=== PATIENT | female | born 1995 | race Caucasian/White ===

== ENCOUNTER → 2021-03-19 15:28 | Outpatient (CLI) | payer OTHER, SELFPAY ==
--- NOTE | 2021-03-19 | DI.RAD.S_ITS ---
PROCEDURE: XR LUMBAR SPINE 2-3V INDICATIONS: LOW BACK PAIN TECHNIQUE: 3 views of the lumbar spine were acquired. COMPARISON: [facility], , L-SPINE 2-3 VIEWS, 09/05/2015, 16:22. FINDINGS: Bones: 5 gdt-[id number]-[id number] vertebrae are present. Trace dextrocurvature centered at the L1 level. Facet arthrosis at L3-S1. No vertebral body compression fractures. Soft tissues: Overlying bowel gas pattern is normal. No suspicious soft tissue calcifications. IMPRESSION: Trace dextrocurvature; otherwise normal L-spine. Dictated by: Dayron BARRERA Interpreted: Oliver Callahan MD on 03/19/2021 at 15:56 Transcribed by: JEROMY on 03/19/2021 at 15:57 Approved by: Oliver Callahan M.D. on 03/19/2021 at 17:32
== END ==
PROVIDERS: Family Provider Family Medicine; PCP Family Medicine; Referring Provider Family Medicine; Visit Provider Family Medicine
DX: M54.50 Low back pain, unspecified (principal)
CPT/HCPCS: 72100

== ENCOUNTER 2024-02-27 17:07 | Emergency (ER) | payer OTHER, SELFPAY ==
[2024-02-27 17:11] VITALS: BP 140/78; PULSE 89; RESP 16; TEMP 36.6; O2SAT 98; BMI 43.7
--- NOTE | 2024-02-27 17:15 | DI.RAD.S_ITS ---
PROCEDURE: XR KNEE LT 3V INDICATIONS: left knee concerns of dislocation, hx same TECHNIQUE: 3 views of the knee were acquired. COMPARISON: , , KNEE 3V LEFT, 04/17/2015, 16:09. FINDINGS: Bones: No fractures or dislocations. Old well corticated osseous fragment adjacent to the medial aspect of the patella. No suspicious bony lesions. Soft tissues: Small joint effusion. No suspicious soft tissue calcifications. IMPRESSION: No acute fracture or dislocation. Small knee joint effusion. If pain persists with conservative management, consider repeat x-ray in 10-14 days or cross-sectional imaging. Dictated by: Manpreet Marcano M.D. on 02/27/2024 at 17:48 Approved by: Manpreet Marcano M.D. on 02/27/2024 at 17:49
--- NOTE | 2024-02-27 18:21 | ED_ITS ---
HPI - Extremity Injury (Lower) <Adriana Goddard PA-C - Last Filed: 02/27/24 19:31> General Chief Complaint: Extremity Injury, Lower Stated Complaint: dislocated knee Time Seen by Provider: 02/27/24 18:21 Source: patient Mode of arrival: Family Vehicle History of Present Illness HPI Narrative: Ms. Cárdenas is a pleasant 28-year-old female with a past medical history of left knee dislocation (suspected patellar dislocation) in 2016 who presents to the emergency department for left knee pain and concern for dislocation that occurred earlier today. Patient states her knee occasionally ?pops? out of place ever since her injury in 2016 however it has been happening more frequently. Earlier today when she was attempting to get into a car the left knee popped and gave out on her and she had immediate pain. States that normally when this happens the pain goes away after about an hour however she has persistently had pain and had some tingling in her toes immediately after the injury. Pain is exacerbated by weight-bearing. She noticed some swelling to the knee. She comes to the ER for further evaluation of possible dislocation or other injury. Denies any other injuries or fall. She has not taken any medication prior to arrival. Related Data Home Medications Medication Instructions Recorded Confirmed cholecalciferol (vitamin D3) 25 2,000 unit PO DAILY 03/30/19 10/29/19 mcg (1,000 unit) capsule l-theanine PO 03/30/19 10/29/19 Previous Rx's Medication Instructions Recorded bupropion HCl 150 mg 24 hr tablet, 150 mg PO QAM #90 tabs 09/06/19 extended release citalopram 20 mg tablet 20 mg PO DAILY #90 tabs 09/30/19 trazodone 50 mg tablet See Rx Instructions PO BEDTIME PRN 10/29/19 sleep #30 tabs Allergies Allergy/AdvReac Type Severity Reaction Status Date / Time Penicillins Allergy Severe Anaphylaxis Verified 02/27/24 17:14 Review of Systems <Adriana Goddard PA-C - Last Filed: 02/27/24 19:31> Review of Systems ROS Unobtainable: All systems reviewed & are unremarkable except as noted in HPI and below Patient History <Adriana Goddard PA-C - Last Filed: 02/27/24 19:31> Social History Smoking Status: Current every day smoker Smoking Status: Current every day smoker tobacco type: vaping Exam <Adriana Goddard PA-C - Last Filed: 02/27/24 19:31> Narrative Exam Narrative: GENERAL: 28 year old patient appears stated age. Well-developed patient, in no acute distress. HEAD: Atraumatic. Normocephalic. CARDIOVASCULAR: Regular rate and rhythm. Strong DP and PT pulse on left foot. Brisk capillary refill. RESPIRATORY: ?Nonlabored respirations. ?Speaking in clear, full sentences. EXTREMITIES: Generalized swelling of left anterior knee with tenderness to palpation of medial anterior patella. No obvious deformities. Passive flexion and extension intact, pain with active extension. Negative posterior drawer test and Nikko's test. NEURO: AOx3. ?Clear speech. ?Sensation intact to light touch on the distal left foot. SKIN: No rash or erythema of visible areas Initial Vital Signs Initial Vital Signs: Vital Signs Temperature 97.8 F 02/27/24 17:11 Pulse Rate 89 02/27/24 17:11 Respiratory Rate 16 02/27/24 17:11 Blood Pressure 140/78 02/27/24 17:11 Pulse Oximetry 98 02/27/24 17:11 Oxygen Delivery Method Room Air 02/27/24 17:11 <Wilmer Bauer DO - Last Filed: 02/27/24 22:10> Initial Vital Signs Initial Vital Signs: Vital Signs Temperature 97.8 F 02/27/24 17:11 Pulse Rate 89 02/27/24 17:11 Respiratory Rate 16 02/27/24 17:11 Blood Pressure 140/78 02/27/24 17:11 Pulse Oximetry 98 02/27/24 17:11 Oxygen Delivery Method Room Air 02/27/24 17:11 Course <Adriana Goddard PA-C - Last Filed: 02/27/24 19:31> Orders Ordered: ED Orders 02/27/24 17:15 XR knee LT 3V Stat Discontinued Medications Acetaminophen (Acetaminophen 325 Mg Tablet) 650 mg PO NOW ONE Stop: 02/27/24 18:34 Last Admin: 02/27/24 18:43 Dose: 650 mg Documented By: JULIOCESAR Ibuprofen (Ibuprofen 400 Mg Tablet) 400 mg PO NOW ONE Stop: 02/27/24 18:34 Last Admin: 02/27/24 18:43 Dose: 400 mg Documented By: JULIOCESAR Vital Signs Vital signs: Vital Signs - 8 hr 02/27/24 17:11 Temperature 97.8 F Pulse Rate 89 Respiratory Rate 16 Blood Pressure 140/78 Pulse Oximetry 98 Oxygen Delivery Method Room Air <Wilmer Bauer DO - Last Filed: 02/27/24 22:10> Orders Ordered: ED Orders 02/27/24 17:15 XR knee LT 3V Stat Discontinued Medications Acetaminophen (Acetaminophen 325 Mg Tablet) 650 mg PO NOW ONE Stop: 02/27/24 18:34 Last Admin: 02/27/24 18:43 Dose: 650 mg Documented By: JULIOCESAR Ibuprofen (Ibuprofen 400 Mg Tablet) 400 mg PO NOW ONE Stop: 02/27/24 18:34 Last Admin: 02/27/24 18:43 Dose: 400 mg Documented By: JULIOCESAR Vital Signs Vital signs: Vital Signs - 8 hr 02/27/24 17:11 Temperature 97.8 F Pulse Rate 89 Respiratory Rate 16 Blood Pressure 140/78 Pulse Oximetry 98 Oxygen Delivery Method Room Air MDM - Extremity Injury (Lower) <Adriana Goddard PA-C - Last Filed: 02/27/24 19:31> Medical Records Attestation: I reviewed the patient's medical records. Imaging Data Left Knee X-Ray: Radiologist's Impression: PROCEDURE: XR KNEE LT 3V INDICATIONS: left knee concerns of dislocation, hx same TECHNIQUE: 3 views of the knee were acquired. COMPARISON: [facility], , KNEE 3V LEFT, 04/17/2015, 16:09. FINDINGS: Bones: No fractures or dislocations. Old well corticated osseous fragment adjacent to the medial aspect of the patella. No suspicious bony lesions. Soft tissues: Small joint effusion. No suspicious soft tissue calcifications. IMPRESSION: No acute fracture or dislocation. Small knee joint effusion. If pain persists with conservative management, consider repeat x-ray in 10-14 days or cross-sectional imaging. MDM Narrative Medical decision making narrative: 28-year-old female with a past medical history of left knee dislocation (suspected patellar dislocation) in 2015 who presents to the emergency department for left knee pain and concern for dislocation that occurred earlier today. Her father contributes to the history. Differential diagnosis includes but is not limited to patellar dislocation, knee sprain, knee strain, meniscus injury, ligament injury, fracture, effusion, etc. On exam the patient is in no acute distress, nontoxic appearing, vital signs all within normal limits. She has some swelling and pain with range of motion of the left knee. Left lower extremity is neurovascularly intact with brisk cap refill, strong pulses, sensation intact to light touch. X-ray obtained revealing no acute fracture or dislocation however there is a small knee joint effusion and an old bone fragment. Concern for possible patellar dislocation that went back into place or other ligament injury. Patient was placed into a left knee immobilizer and advised to follow up with Orthopedics. She has crutches at home. Recommended rice therapy and ibuprofen/Tylenol. First doses of medications given the ER. She verbalized understanding of all information and is agreeable to the plan. She is stable for discharge home. Discharge Plan Departure Patient Disposition: Home Clinical Impression: Effusion of left knee joint Left knee sprain Qualifiers: Encounter type: initial encounter Involved ligament of knee: unspecified ligament Qualified Code(s): S83.92XA - Sprain of unspecified site of left knee, initial encounter Instructions: DI for Knee Sprain Activity Restrictions/Additional Instructions: Dear Ms. Cárdenas, Today you were evaluated for left knee pain after a possible dislocation. Your x-ray does not reveal any acute bone fracture or dislocation. There is a small joint effusion. There is an old bone fragment. I am concerned about possible ligament or soft tissue injury, therefore we have placed to into a left knee immobilizer. Please use crutches if needed. Please take Ibuprofen (Motrin/Advil) or Acetaminophen (Tylenol) for pain. These are available over the counter. You may take Ibuprofen 600 mg every 8 hours with food for pain. You may also take Acetaminophen 650 mg every 4-6 hours for pain. Do not exceed 3000 mg of Tylenol a day as this can cause liver damage. Do not drink alcohol with either of these medications. Please use RICE therapy for your pain in addition to ibuprofen/acetaminophen. Rest the painful area. Ice the area of pain/swelling for at least 15 minutes, 4x a day. Compress the area of swelling using a brace, wrap, or splint if applied. Elevate the painful or swollen extremity by supporting it above the level of the heart with pillows when sitting or laying. Please call to schedule an appointment with [facility] for further evaluation. You may follow up with Dr. Arcelia Cárdenas or any of the other physicians. You can call their office at [phone] to schedule an appointment. Please follow up with your primary care doctor within the next 2-3 days for ER follow-up. (If you do not have a PCP you can call [phone]. ?to schedule an appointment with an [facility] Primary Care Provider) IF YOU DEVELOP ANY NEW OR WORSENING SYMPTOMS, RETURN TO THE ER! Please read the attached instructions, they highlight more specific treatments and interventions for you at home. Thank you for letting me participate in your care, Adriana Goddard PA-C Prescriptions: No Action l-theanine PO Rx Instructions: unknown dose, pt takes 2 tabs daily cholecalciferol (vitamin D3) 25 mcg (1,000 unit) capsule 2,000 unit PO DAILY trazodone 50 mg tablet See Rx Instructions PO BEDTIME PRN (Reason: sleep) Qty: 30 2RF Rx Instructions: Take 1/2-1 tab at bedtime as needed for sleep. citalopram 20 mg tablet 20 mg PO DAILY Qty: 90 0RF bupropion HCl 150 mg tablet extended release 24 hr 150 mg PO QAM Qty: 90 1RF Referrals: Mohan Fajardo MD [Primary Care Provider] - Stand Alone Forms: Patient Portal/API/Survey ED Sign-out <Wilmer Bauer, - Last Filed: 02/27/24 22:10> [facility]: Dr Bauer Co-Sign Statement: I was available for consultation during this patient's emergency department visit. This chart is signed by myself for administrative purposes only. I did not have direct contact with this patient during this visit. They were seen independently by the APC.
[2024-02-27] MEDS: ACETAMINOPHEN 325 MG TABLET 650 MG PO (18:43)
[2024-02-27] MEDS: IBUPROFEN 400 MG TABLET PO (18:43)
--- NOTE | 2024-02-27 19:03 | PC.NURSE ---
Pt reports hx of old bone fragment; states pain in left knee--worse upon standing up.
== END 2024-02-27 19:04 | disposition home or self-care (01) ==
PROVIDERS: Emergency Provider Physician Assistant; Family Provider Family Medicine; PCP Family Medicine
DX: S83.92XA Sprain of unspecified site of left knee, initial encounter (principal); M25.462 Effusion, left knee; X58.XXXA Exposure to other specified factors, initial encounter; Y93.89 Activity, other specified
CPT/HCPCS: 73562; 99283

== ENCOUNTER 2024-05-10 10:45 | Outpatient (RCR) | payer BC, SELFPAY ==
--- NOTE | 2024-03-29 12:08 | PT.OIE ---
Current Diagnoses Other instability, left knee (03/29/24) Pain in left knee (03/29/24) Stiffness of left knee, not elsewhere classified (03/29/24) Visit Care Team Role Provider Type Mohan Fajardo MD Family Provider Physician Primary Care Provider Specialty: Family Practice Address: [address] [place] [address], [place], [address] Email: [email or web address] Panchito Clark MD Attending Provider Non-Staff Referring Provider Specialty: Sports Medicine Address: [address] [place] [address], [id number] Email: Physical Therapy Initial Evaluation PT-OP-A Visit Information Start: 03/29/24 10:21 Freq: Status: Active Protocol: Document 03/29/24 09:45 DCW (Rec: 03/29/24 10:34 DC [id number]) Out-Patient Physical Therapy Visit Information Visit Information Visit Type Initial Evaluation Visit Start Time 09:45 Visit Stop Time 10:20 Visit Number 1 Number of EMERGENCY PHYSICIAN Visits 0 Evaluation Information Evaluation Date 03/29/24 PT-OP-B Current Condition Start: 03/29/24 10:21 Freq: Status: Active Protocol: Document 03/29/24 09:45 DCW (Rec: 03/29/24 10:34 DC [id number]) Current Condition History of Current Condition Onset Date 2016 Current Complaints Left knee instability, patellar dislocations History of Current Condition Pt is a 28 year old female presenting with an eight year history of left knee instability. Began in 2016 with an unexpected twisting motion when slipping on mud, resulting in patellar dislocation. Since that time, pt has occasional times of her knee going out, describes that it feels like her knee cap pops out of place and then goes back in. 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 Even when she has not experienced recent knee instability, her knee always hurts. Note the back of her knee iss stiff, feels like it locks up. Did undergo an MRI last week, and had follow-up with surgeon. Therapist does not currently have access to MRI results, but pt reports she has torn her MPFL, and the ortho expects her to require surgery in the future, but would like her to work on leg strengthening first. Pt notes she avoids stairs as much as she can, and will typically ascend in a step-to manner, which has now resulted in worsening right knee pain from overuse. PT-OP-C Subjective Start: 03/29/24 10:21 Freq: Status: Active Protocol: Document 03/29/24 09:45 DCW (Rec: 03/29/24 10:34 DCW [id number]) OP-PT Subjective Patient Comments Patient Comments It's been very wobbly since all this started eight years ago. PT-OP-F Manual Assessment Start: 03/29/24 10:21 Freq: Status: Active Protocol: Document 03/29/24 09:45 DCW (Rec: 03/29/24 12:00 DCW [id number]) Manual Assessments Soft Tissue Assessment Soft Tissue Mobility Assessment Moderate tone and tenderness to palpation 3/4: wincing and withdraw left proximal gastroc Joint Mobility Assessment Joint Mobility Assessment Wincing with left knee extension, soft end feel for bilateral knee flexion. Hypermobility of patellar lateral movement PT-OP-K Range of Motion Start: 03/29/24 10:21 Freq: Status: Active Protocol: Document 03/29/24 09:45 DCW (Rec: 03/29/24 12:00 DCW [id number]) Knee Goniometric Range of Motion Knee Right Patient Position Supine Flexion Active (degrees) 118 Extension Active (degrees) 0 Left Patient Position Supine Flexion Active (degrees) 112 Extension Active (degrees) 6 PT-OP-L Special Tests Start: 03/29/24 10:21 Freq: Status: Active Protocol: Document 03/29/24 09:45 DCW (Rec: 03/29/24 12:00 DCW [id number]) Special Tests Knee Special Tests Varus- 25 Degrees Test Results Negative Valgus- 25 Degrees Test Results Negative Posterior Draw Test Results Negative Patellar Grind Test Test Results Negative Anterior Draw Test Results Negative PT-OP-M Strength Start: 03/29/24 10:21 Freq: Status: Active Protocol: Document 03/29/24 09:45 DCW (Rec: 03/29/24 12:00 DCW [id number]) Knee Strength Knee Manual Muscle Testing Right Flexion (S2) 5 Normal Extension (L3) 5 Normal Left Flexion (S2) 4 Good Extension (L3) 4 Good PT-OP-Q Treatments Start: 03/29/24 10:21 Freq: Status: Active Protocol: Document 03/29/24 09:45 DCW (Rec: 03/29/24 10:34 DCW [id number]) Therapeutic Exercises Supine Exercises Bridging Supine Exercise Name Bridging /c adductor ball squeeze SLR Supine Exercise Name SLR /c ER Side left Sidelying Exercises SLR Sidelying Exercise Name SLR - adduction Side left PT-OP-T Assessment and Plan Start: 03/29/24 10:21 Freq: Status: Active Protocol: Document 03/29/24 09:45 DCW (Rec: 03/29/24 12:08 DCW [id number]) Physical Therapy Assessment Rehab Potential Rehabilitation Potential Good Evaluation Complexity Number of Personal Factors/Comorbidities 3 or More Number of Body Systems Impaired 4 or More Clinical Presentation at Evaluation Unstable Impairments Impairments Functional Activities, Functional Mobility,Gait,Pain, Strength Goals Two Impairment Pt unable to ascend stairs with a reciprocal gait pattern Snf Goal (LTG) Pt to demonstrate ability to ascend a flight of stairs with a hdux-zfni-cdxv gait pattern without increased pain in order to demonstrate improvement in patellar tracking LTG Duration 05/27/24 One Impairment Pt does not have an appropriate home exercise program Short Term Goal (STG) Pt to be independent and compliant with an appropriate HEP STG Duration 04/29/24 Assessment Summary Assessment Pt presents with signs and symptoms consistent with recent diagnosis of a MPFL tear. Pt displays increased laxity of lateral patellar movement, and experiences frequent patellar subluxations . MMT does show some mile left quad/hamstring weakness, and pt struggles with left knee extension, often wincing with pain, and AROM measuring 6? extension. Pt will likely benefit from skilled therapeutic intervention focusing on quad strengthening , knee ROM, patellar tracking, gait/stair training, STM of distal HS/proximal calf, and flexibility. Physical Therapy Plan Frequency and Duration Frequency of Treatment 2x/Week Plan of Care Start Date 03/29/24 Plan of Care End Date 05/27/24 Therapeutic Interventions Therapeutic Interventions Gait Training,Home Exercise Program,Joint Mobilizations, Manual Therapy,Neuromuscular Re-education,Patient/Caregiver Education,Self-Care/Home Management,Soft Tissue Mobilization,Therapeutic Activities,Therapeutic Exercises Next Visit Focus/Plan Next Note Type Treatment Note Next Visit Plan Quad/HS strengthening, knee extension mobility, gait training.
--- NOTE | 2024-03-29 12:10 | PT.OPPOC ---
Physical, Occupational & Speech Therapy At [facility] Current Diagnoses Other instability, left knee (03/29/24) Pain in left knee (03/29/24) Stiffness of left knee, not elsewhere classified (03/29/24) Visit Care Team Role Provider Type Mohan Fajardo MD Family Provider Physician Primary Care Provider Specialty: Family Practice Address: [address] [place] [address], [place], [address] Email: [email or web address] Panchito Clark MD Attending Provider Non-Staff Referring Provider Specialty: Sports Medicine Address: [address] [place] [address], [address] Email: Plan Of Care PT-OP-B Current Condition Start: 03/29/24 10:21 Freq: Status: Active Protocol: Document 03/29/24 09:45 DCW (Rec: 03/29/24 10:34 DCW [id number]) Current Condition History of Current Condition Onset Date 2016 Current Complaints Left knee instability, patellar dislocations History of Current Condition Pt is a 28 year old female presenting with an eight year history of left knee instability. Began in 2016 with an unexpected twisting motion when slipping on mud, resulting in patellar dislocation. Since that time, pt has occasional times of her knee going out, describes that it feels like her knee cap pops out of place and then goes back in. 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 Even when she has not experienced recent knee instability, her knee always hurts. Note the back of her knee iss stiff, feels like it locks up. Did undergo an MRI last week, and had follow-up with surgeon. Therapist does not currently have access to MRI results, but pt reports she has torn her MPFL, and the ortho expects her to require surgery in the future, but would like her to work on leg strengthening first. Pt notes she avoids stairs as much as she can, and will typically ascend in a step-to manner, which has now resulted in worsening right knee pain from overuse. PT-OP-T Assessment and Plan Start: 03/29/24 10:21 Freq: Status: Active Protocol: Document 03/29/24 09:45 DCW (Rec: 03/29/24 12:08 DCW [id number]) Physical Therapy Assessment Rehab Potential Rehabilitation Potential Good Evaluation Complexity Number of Personal Factors/Comorbidities 3 or More Number of Body Systems Impaired 4 or More Clinical Presentation at Evaluation Unstable Impairments Impairments Functional Activities, Functional Mobility,Gait,Pain, Strength Goals Two Impairment Pt unable to ascend stairs with a reciprocal gait pattern Residential Goal (LTG) Pt to demonstrate ability to ascend a flight of stairs with a rgqw-rpej-vrfl gait pattern without increased pain in order to demonstrate improvement in patellar tracking LTG Duration 05/27/24 One Impairment Pt does not have an appropriate home exercise program Short Term Goal (STG) Pt to be independent and compliant with an appropriate HEP STG Duration 04/29/24 Assessment Summary Assessment Pt presents with signs and symptoms consistent with recent diagnosis of a MPFL tear. Pt displays increased laxity of lateral patellar movement, and experiences frequent patellar subluxations . MMT does show some mile left quad/hamstring weakness, and pt struggles with left knee extension, often wincing with pain, and AROM measuring 6? extension. Pt will likely benefit from skilled therapeutic intervention focusing on quad strengthening , knee ROM, patellar tracking, gait/stair training, STM of distal HS/proximal calf, and flexibility. Physical Therapy Plan Frequency and Duration Frequency of Treatment 2x/Week Plan of Care Start Date 03/29/24 Plan of Care End Date 05/27/24 Therapeutic Interventions Therapeutic Interventions Gait Training,Home Exercise Program,Joint Mobilizations, Manual Therapy,Neuromuscular Re-education,Patient/Caregiver Education,Self-Care/Home Management,Soft Tissue Mobilization,Therapeutic Activities,Therapeutic Exercises Next Visit Focus/Plan Next Note Type Treatment Note Next Visit Plan Quad/HS strengthening, knee extension mobility, gait training. Plan of Care Dates Plan of Care Start Date 03/29/24 Plan of Care End Date 05/27/24 Electronically Signed by: Caesar Suggs, PT 03/29/24 9029 If you are in agreement with this Plan of Care, please return a signed and dated copy. I have reviewed this Plan of Care and certify that the skilled therapy services above are required to meet the patient?s needs. Physician Signature Date Printed Name and Credentials Clinical Instructor Signature Printed Name and Credentials
--- NOTE | 2024-04-09 11:31 | PT.OTN ---
Current Diagnoses Other instability, left knee (04/09/24) Pain in left knee (04/09/24) Stiffness of left knee, not elsewhere classified (04/09/24) Physical Therapy Treatment Note PT-OP-A Visit Information Start: 03/29/24 10:21 Freq: Status: Active Protocol: Document 04/09/24 10:45 DCW (Rec: 04/09/24 11:31 DCW [id number]) Out-Patient Physical Therapy Visit Information Visit Information Visit Type Treatment Note Visit Start Time 10:45 Visit Stop Time 11:30 Visit Number 2 Number of ASSISTANT CLINICAL DIRECTOR Visits 0 Evaluation Information Evaluation Date 03/29/24 PT-OP-B Current Condition Start: 03/29/24 10:21 Freq: Status: Active Protocol: Document 03/29/24 09:45 DCW (Rec: 03/29/24 10:34 DCW [id number]) Current Condition History of Current Condition Onset Date 2015 Current Complaints Left knee instability, patellar dislocations History of Current Condition Pt is a 28 year old female presenting with an eight year history of left knee instability. Began in 2015 with an unexpected twisting motion when slipping on mud, resulting in patellar dislocation. Since that time, pt has occasional times of her knee going out, describes that it feels like her knee cap pops out of place and then goes back in. 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 Even when she has not experienced recent knee instability, her knee always hurts. Note the back of her knee iss stiff, feels like it locks up. Did undergo an MRI last week, and had follow-up with surgeon. Therapist does not currently have access to MRI results, but pt reports she has torn her MPFL, and the ortho expects her to require surgery in the future, but would like her to work on leg strengthening first. Pt notes she avoids stairs as much as she can, and will typically ascend in a step-to manner, which has now resulted in worsening right knee pain from overuse. PT-OP-C Subjective Start: 03/29/24 10:21 Freq: Status: Active Protocol: Document 04/09/24 10:45 DCW (Rec: 04/09/24 11:31 DCW [id number]) OP-PT Subjective Patient Comments Patient Comments Not really any different. PT-OP-F Manual Assessment Start: 03/29/24 10:21 Freq: Status: Active Protocol: Document 03/29/24 09:45 DCW (Rec: 03/29/24 12:00 DCW [id number]) Manual Assessments Soft Tissue Assessment Soft Tissue Mobility Assessment Moderate tone and tenderness to palpation 3/4: wincing and withdraw left proximal gastroc Joint Mobility Assessment Joint Mobility Assessment Wincing with left knee extension, soft end feel for bilateral knee flexion. Hypermobility of patellar lateral movement PT-OP-K Range of Motion Start: 03/29/24 10:21 Freq: Status: Active Protocol: Document 03/29/24 09:45 DCW (Rec: 03/29/24 12:00 DCW [id number]) Knee Goniometric Range of Motion Knee Right Patient Position Supine Flexion Active (degrees) 118 Extension Active (degrees) 0 Left Patient Position Supine Flexion Active (degrees) 112 Extension Active (degrees) 6 PT-OP-L Special Tests Start: 03/29/24 10:21 Freq: Status: Active Protocol: Document 03/29/24 09:45 DCW (Rec: 03/29/24 12:00 DCW [id number]) Special Tests Knee Special Tests Varus- 25 Degrees Test Results Negative Valgus- 25 Degrees Test Results Negative Posterior Draw Test Results Negative Patellar Grind Test Test Results Negative Anterior Draw Test Results Negative PT-OP-M Strength Start: 03/29/24 10:21 Freq: Status: Active Protocol: Document 03/29/24 09:45 DCW (Rec: 03/29/24 12:00 DCW [id number]) Knee Strength Knee Manual Muscle Testing Right Flexion (S2) 5 Normal Extension (L3) 5 Normal Left Flexion (S2) 4 Good Extension (L3) 4 Good PT-OP-Q Treatments Start: 03/29/24 10:21 Freq: Status: Active Protocol: Document 04/09/24 10:45 DCW (Rec: 04/09/24 11:31 DCW [id number]) Gym Equipment Shuttle Recovery Plyometric Details Plyometric hopping Resistance 25# Unilateral Squats Resistance 37# Shuttle Recovery Platform Stable Bilateral Squats Resistance 75# Shuttle Recovery Platform Stable Therapeutic Exercises Standing Exercises Resistance Lunge Standing Exercise Name Lunge with medial T-band resistance Side left Resistance Lv 3 Step-ups Standing Exercise Name Step-ups/downs Side bilateral Equipment Used 6->4 step Manual Therapy Treatment Taping Patella Body Location Left patella Treatment Focus Medial stabilization of patella Type of Tape Kinesio Tape Neuro Re-Education Treatment Balance Activities SLS Details SLS Surface AirEx Equipment // bars BOSU Lunge Details BOSU Lunge Surface Blue BOSU Equipment // bars PT-OP-T Assessment and Plan Start: 03/29/24 10:21 Freq: Status: Active Protocol: Document 04/09/24 10:45 DCW (Rec: 04/09/24 11:31 DCW [id number]) Physical Therapy Assessment Impairments Impairments Functional Activities, Functional Mobility,Gait,Pain, Strength Goals Two Impairment Pt unable to ascend stairs with a reciprocal gait pattern Tube Dispatcher Goal (LTG) Pt to demonstrate ability to ascend a flight of stairs with a mzgk-hmbq-wqzy gait pattern without increased pain in order to demonstrate improvement in patellar tracking LTG Duration 05/27/24 One Impairment Pt does not have an appropriate home exercise program Short Term Goal (STG) Pt to be independent and compliant with an appropriate HEP STG Duration 04/29/24 Assessment Summary Assessment Trial of K-tape for patella stability today, as pt hopes to use the brace less frequently. Good response to treatment, pt had some struggle with step-ups/downs, but did well with decreasing step size to 4. Physical Therapy Plan Frequency and Duration Frequency of Treatment 2x/Week Plan of Care Start Date 03/29/24 Plan of Care End Date 05/27/24 Therapeutic Interventions Therapeutic Interventions Gait Training,Home Exercise Program,Joint Mobilizations, Manual Therapy,Neuromuscular Re-education,Patient/Caregiver Education,Self-Care/Home Management,Soft Tissue Mobilization,Therapeutic Activities,Therapeutic Exercises Next Visit Focus/Plan Next Note Type Treatment Note Next Visit Plan Quad/HS strengthening, knee extension mobility, gait training.
--- NOTE | 2024-04-13 16:19 | PT.OTN ---
Current Diagnoses Other instability, left knee (04/13/24) Pain in left knee (04/13/24) Stiffness of left knee, not elsewhere classified (04/13/24) Physical Therapy Treatment Note PT-OP-A Visit Information Start: 03/29/24 10:21 Freq: Status: Active Protocol: Document 04/13/24 14:30 AB (Rec: 04/13/24 16:18 AB [id number]) Out-Patient Physical Therapy Visit Information Visit Information Visit Type Treatment Note Visit Start Time 15:21 Visit Stop Time 16:05 Visit Number 3 Number of ADULT DAY CARE WORKER Visits 1 Evaluation Information Evaluation Date 03/29/24 PT-OP-B Current Condition Start: 03/29/24 10:21 Freq: Status: Active Protocol: Document 03/29/24 09:45 DCW (Rec: 03/29/24 10:34 DCW [id number]) Current Condition History of Current Condition Onset Date 2015 Current Complaints Left knee instability, patellar dislocations History of Current Condition Pt is a 28 year old female presenting with an eight year history of left knee instability. Began in 2015 with an unexpected twisting motion when slipping on mud, resulting in patellar dislocation. Since that time, pt has occasional times of her knee going out, describes that it feels like her knee cap pops out of place and then goes back in. 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 Even when she has not experienced recent knee instability, her knee always hurts. Note the back of her knee iss stiff, feels like it locks up. Did undergo an MRI last week, and had follow-up with surgeon. Therapist does not currently have access to MRI results, but pt reports she has torn her MPFL, and the ortho expects her to require surgery in the future, but would like her to work on leg strengthening first. Pt notes she avoids stairs as much as she can, and will typically ascend in a step-to manner, which has now resulted in worsening right knee pain from overuse. PT-OP-C Subjective Start: 03/29/24 10:21 Freq: Status: Active Protocol: Document 04/13/24 14:30 AB (Rec: 04/13/24 16:18 AB [id number]) OP-PT Subjective Patient Comments Patient Comments Patient reports she is the same, comments the tape feels like as much support as the brace. Patient rates pain 0/10 ambulating into session, comments knee doesn't hurt, just doesn't feel stable. Patient stands with bilateral knees hyper extended L LE ER at hip. PT-OP-F Manual Assessment Start: 03/29/24 10:21 Freq: Status: Active Protocol: Document 03/29/24 09:45 DCW (Rec: 03/29/24 12:00 DCW [id number]) Manual Assessments Soft Tissue Assessment Soft Tissue Mobility Assessment Moderate tone and tenderness to palpation 3/4: wincing and withdraw left proximal gastroc Joint Mobility Assessment Joint Mobility Assessment Wincing with left knee extension, soft end feel for bilateral knee flexion. Hypermobility of patellar lateral movement PT-OP-K Range of Motion Start: 03/29/24 10:21 Freq: Status: Active Protocol: Document 03/29/24 09:45 DCW (Rec: 03/29/24 12:00 DCW [id number]) Knee Goniometric Range of Motion Knee Right Patient Position Supine Flexion Active (degrees) 118 Extension Active (degrees) 0 Left Patient Position Supine Flexion Active (degrees) 112 Extension Active (degrees) 6 PT-OP-L Special Tests Start: 03/29/24 10:21 Freq: Status: Active Protocol: Document 03/29/24 09:45 DCW (Rec: 03/29/24 12:00 DCW [id number]) Special Tests Knee Special Tests Varus- 25 Degrees Test Results Negative Valgus- 25 Degrees Test Results Negative Posterior Draw Test Results Negative Patellar Grind Test Test Results Negative Anterior Draw Test Results Negative PT-OP-M Strength Start: 03/29/24 10:21 Freq: Status: Active Protocol: Document 03/29/24 09:45 DCW (Rec: 03/29/24 12:00 DCW [id number]) Knee Strength Knee Manual Muscle Testing Right Flexion (S2) 5 Normal Extension (L3) 5 Normal Left Flexion (S2) 4 Good Extension (L3) 4 Good PT-OP-Q Treatments Start: 03/29/24 10:21 Freq: Status: Active Protocol: Document 04/13/24 14:30 AB (Rec: 04/13/24 16:18 AB [id number]) Therapeutic Exercises Supine Exercises Bridging Supine Exercise Name Bridging /c adductor ball squeeze Reps/Minutes X5 w/o ball X 10 with ball Comments VC to push into heels, limit height to pain free level, and for segmental SLR Supine Exercise Name SLR /c ER Side left Reps/Minutes x15 Sidelying Exercises SLR Sidelying Exercise Name SLR - adduction Side left Reps/Minutes X15 Sitting Exercises great toe abd Side left Reps/Minutes X 2 Verbal and tactile cues Comments to improve LE alignment Standing Exercises calf stretch Standing Exercise Name HEP Gastroc only Side left Reps/Minutes Gastroc X 1min Soleus 2 trials unable to complete/ sensat TC area Comments verbal and visual cues sit to stand Standing Exercise Name X 5 varying heights and with level 3 band X10 w/o band Resistance w/o band to HEP Reps/Minutes X15 Comments monitored for pain and L LE position Step-ups Equipment Used 4 inch Reps/Minutes x1 Comments not fabrizio Therapeutic Activity Therapeutic Activity stair training Name 4 six inch stairs X 3 with UE use Comments Verbal cues for hip hinge and UE position on rails to increase hip hinge. Verbal cues to activate gluteal muscles when ascending. standing posture Reps/Minutes Verbal cues to correct hyper ext and postion L LE as right ( less ER) Comments with and without mirror. Manual Therapy Treatment Consent Patient gave verbal consent for manual Yes treatment Joint Mobilizations TCLeft ankle Joint Mulligan with movement Direction AP Grade III Body Position Standing Reps/Duration X10 and X 5 Comments Limited by L knee pain Patient ed rationale of TC mob with use of skeleton model. Taping Patella Body Location Left patella Treatment Focus Medial stabilization of patella Type of Tape Kinesio Tape PT-OP-T Assessment and Plan Start: 03/29/24 10:21 Freq: Status: Active Protocol: Document 04/13/24 14:30 AB (Rec: 04/13/24 16:18 AB [id number]) Physical Therapy Assessment Goals Two Impairment Pt unable to ascend stairs with a reciprocal gait pattern Jail Goal (LTG) Pt to demonstrate ability to ascend a flight of stairs with a [id number] gait pattern without increased pain in order to demonstrate improvement in patellar tracking LTG Duration 05/27/24 One Impairment Pt does not have an appropriate home exercise program Short Term Goal (STG) Pt to be independent and compliant with an appropriate HEP STG Duration 04/29/24 Assessment Summary Assessment Patient into session with reports K-tape feels better than the brace. End of session reports right knee is a little sore. Calf stiffness and TC stiffness impacting LE position for squats and standing with L LE toeing out greater than R LE. Physical Therapy Plan Frequency and Duration Frequency of Treatment 2x/Week Plan of Care Start Date 03/29/24 Plan of Care End Date 05/27/24 Next Visit Focus/Plan Next Note Type Treatment Note Next Visit Plan Quad/HS strengthening, knee extension mobility, gait training.
--- NOTE | 2024-04-26 10:34 | PT.OTN ---
Current Diagnoses Other instability, left knee (04/26/24) Pain in left knee (04/26/24) Stiffness of left knee, not elsewhere classified (04/26/24) Physical Therapy Treatment Note PT-OP-A Visit Information Start: 03/29/24 10:21 Freq: Status: Active Protocol: Document 04/26/24 09:47 DCW (Rec: 04/26/24 10:34 DCW [id number]) Out-Patient Physical Therapy Visit Information Visit Information Visit Type Treatment Note Visit Start Time 09:47 Visit Stop Time 10:30 Visit Number 4 Number of HUB BANDER Visits 0 Evaluation Information Evaluation Date 03/29/24 PT-OP-B Current Condition Start: 03/29/24 10:21 Freq: Status: Active Protocol: Document 03/29/24 09:45 DCW (Rec: 03/29/24 10:34 DCW [id number]) Current Condition History of Current Condition Onset Date 2015 Current Complaints Left knee instability, patellar dislocations History of Current Condition Pt is a 28 year old female presenting with an eight year history of left knee instability. Began in 2015 with an unexpected twisting motion when slipping on mud, resulting in patellar dislocation. Since that time, pt has occasional times of her knee going out, describes that it feels like her knee cap pops out of place and then goes back in. 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 Even when she has not experienced recent knee instability, her knee always hurts. Note the back of her knee iss stiff, feels like it locks up. Did undergo an MRI last week, and had follow-up with surgeon. Therapist does not currently have access to MRI results, but pt reports she has torn her MPFL, and the ortho expects her to require surgery in the future, but would like her to work on leg strengthening first. Pt notes she avoids stairs as much as she can, and will typically ascend in a step-to manner, which has now resulted in worsening right knee pain from overuse. PT-OP-C Subjective Start: 03/29/24 10:21 Freq: Status: Active Protocol: Document 04/26/24 09:47 DCW (Rec: 04/26/24 10:34 DCW [id number]) OP-PT Subjective Patient Comments Patient Comments Knee is pretty much the same, notes she was sick last week , so didn't do much. PT-OP-F Manual Assessment Start: 03/29/24 10:21 Freq: Status: Active Protocol: Document 03/29/24 09:45 DCW (Rec: 03/29/24 12:00 DCW [id number]) Manual Assessments Soft Tissue Assessment Soft Tissue Mobility Assessment Moderate tone and tenderness to palpation 3/4: wincing and withdraw left proximal gastroc Joint Mobility Assessment Joint Mobility Assessment Wincing with left knee extension, soft end feel for bilateral knee flexion. Hypermobility of patellar lateral movement PT-OP-K Range of Motion Start: 03/29/24 10:21 Freq: Status: Active Protocol: Document 03/29/24 09:45 DCW (Rec: 03/29/24 12:00 DCW [id number]) Knee Goniometric Range of Motion Knee Right Patient Position Supine Flexion Active (degrees) 118 Extension Active (degrees) 0 Left Patient Position Supine Flexion Active (degrees) 112 Extension Active (degrees) 6 PT-OP-L Special Tests Start: 03/29/24 10:21 Freq: Status: Active Protocol: Document 03/29/24 09:45 DCW (Rec: 03/29/24 12:00 DCW [id number]) Special Tests Knee Special Tests Varus- 25 Degrees Test Results Negative Valgus- 25 Degrees Test Results Negative Posterior Draw Test Results Negative Patellar Grind Test Test Results Negative Anterior Draw Test Results Negative PT-OP-M Strength Start: 03/29/24 10:21 Freq: Status: Active Protocol: Document 03/29/24 09:45 DCW (Rec: 03/29/24 12:00 DCW [id number]) Knee Strength Knee Manual Muscle Testing Right Flexion (S2) 5 Normal Extension (L3) 5 Normal Left Flexion (S2) 4 Good Extension (L3) 4 Good PT-OP-Q Treatments Start: 03/29/24 10:21 Freq: Status: Active Protocol: Document 04/26/24 09:47 DCW (Rec: 04/26/24 10:34 DCW [id number]) Gym Equipment Shuttle Recovery Plyometric Details Plyometric hopping Resistance 25# Unilateral Squats Resistance 50# Shuttle Recovery Platform Stable Bilateral Squats Details Adductor ball squeeze Resistance 87# Shuttle Recovery Platform Stable Therapeutic Exercises Supine Exercises SLR Supine Exercise Name SLR /c ER Side left Resistance 4# Reps/Minutes x15 Sitting Exercises LAQ Sitting Exercise Name LAQ Side bilateral Resistance 5# Standing Exercises Tilt Board Standing Exercise Name Lateral weight shift Side bilateral calf stretch Standing Exercise Name Gastroc Stretch Side bilateral Equipment Used EVAN Step-ups Standing Exercise Name Step-ups Side bilateral Equipment Used 4 step Other Exercises Resisted Ambulation Other Exercise Name Resisted Side-stepping Resistance [place] Manual Therapy Treatment Consent Patient gave verbal consent for manual Yes treatment Joint Mobilizations Patella Joint Patella mobs Direction Inf/Sup Grade III Body Position Sitting Neuro Re-Education Treatment Balance Activities SLS Details SLS Surface AirEx Equipment // bars BOSU Lunge Details BOSU Lunge Surface Blue BOSU Equipment // bars PT-OP-T Assessment and Plan Start: 03/29/24 10:21 Freq: Status: Active Protocol: Document 04/26/24 09:47 DCW (Rec: 04/26/24 10:34 DCW [id number]) Physical Therapy Assessment Impairments Impairments Functional Activities, Functional Mobility,Gait,Pain, Strength Goals Two Impairment Pt unable to ascend stairs with a reciprocal gait pattern Log Loader Goal (LTG) Pt to demonstrate ability to ascend a flight of stairs with a [id number]-drgh-buvm gait pattern without increased pain in order to demonstrate improvement in patellar tracking LTG Duration 05/27/24 One Impairment Pt does not have an appropriate home exercise program Short Term Goal (STG) Pt to be independent and compliant with an appropriate HEP STG Duration 04/29/24 Assessment Summary Assessment Pt clearly fatigued while recovering from illness last week, but tolerated well. Continue with quad strengthening, knee stabilization, and activity tolerance. Physical Therapy Plan Frequency and Duration Frequency of Treatment 2x/Week Plan of Care Start Date 03/29/24 Plan of Care End Date 05/27/24 Therapeutic Interventions Therapeutic Interventions Gait Training,Home Exercise Program,Joint Mobilizations, Manual Therapy,Neuromuscular Re-education,Patient/Caregiver Education,Self-Care/Home Management,Soft Tissue Mobilization,Therapeutic Activities,Therapeutic Exercises Next Visit Focus/Plan Next Note Type Treatment Note Next Visit Plan Quad/HS strengthening, knee extension mobility, gait training.
--- NOTE | 2024-05-03 10:40 | PT.OTN ---
Current Diagnoses Other instability, left knee (05/03/24) Pain in left knee (05/03/24) Stiffness of left knee, not elsewhere classified (05/03/24) Physical Therapy Treatment Note PT-OP-A Visit Information Start: 03/29/24 10:21 Freq: Status: Active Protocol: Document 05/03/24 08:10 AB (Rec: 05/03/24 10:40 AB [id number]) Out-Patient Physical Therapy Visit Information Visit Information Visit Type Treatment Note Visit Start Time 09:51 Visit Stop Time 10:34 Visit Number 5 Number of VENEER GLUE SPREADER Visits 1 Evaluation Information Evaluation Date 03/29/24 PT-OP-B Current Condition Start: 03/29/24 10:21 Freq: Status: Active Protocol: Document 03/29/24 09:45 DCW (Rec: 03/29/24 10:34 DCW [id number]) Current Condition History of Current Condition Onset Date 2015 Current Complaints Left knee instability, patellar dislocations History of Current Condition Pt is a 28 year old female presenting with an eight year history of left knee instability. Began in 2015 with an unexpected twisting motion when slipping on mud, resulting in patellar dislocation. Since that time, pt has occasional times of her knee going out, describes that it feels like her knee cap pops out of place and then goes back in. 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 Even when she has not experienced recent knee instability, her knee always hurts. Note the back of her knee iss stiff, feels like it locks up. Did undergo an MRI last week, and had follow-up with surgeon. Therapist does not currently have access to MRI results, but pt reports she has torn her MPFL, and the ortho expects her to require surgery in the future, but would like her to work on leg strengthening first. Pt notes she avoids stairs as much as she can, and will typically ascend in a step-to manner, which has now resulted in worsening right knee pain from overuse. PT-OP-C Subjective Start: 03/29/24 10:21 Freq: Status: Active Protocol: Document 05/03/24 08:10 AB (Rec: 05/03/24 10:40 AB [id number]) OP-PT Subjective Patient Comments Patient Comments Patient reports she was sore post previous session, was not able to do exercises for 3 days. Nicole rates pain 0/10 start of session, added tape to right knee which helping the right knee. PT-OP-F Manual Assessment Start: 03/29/24 10:21 Freq: Status: Active Protocol: Document 03/29/24 09:45 DCW (Rec: 03/29/24 12:00 DCW [id number]) Manual Assessments Soft Tissue Assessment Soft Tissue Mobility Assessment Moderate tone and tenderness to palpation 3/4: wincing and withdraw left proximal gastroc Joint Mobility Assessment Joint Mobility Assessment Wincing with left knee extension, soft end feel for bilateral knee flexion. Hypermobility of patellar lateral movement PT-OP-K Range of Motion Start: 03/29/24 10:21 Freq: Status: Active Protocol: Document 03/29/24 09:45 DCW (Rec: 03/29/24 12:00 DCW [id number]) Knee Goniometric Range of Motion Knee Right Patient Position Supine Flexion Active (degrees) 118 Extension Active (degrees) 0 Left Patient Position Supine Flexion Active (degrees) 112 Extension Active (degrees) 6 PT-OP-L Special Tests Start: 03/29/24 10:21 Freq: Status: Active Protocol: Document 03/29/24 09:45 DCW (Rec: 03/29/24 12:00 DCW [id number]) Special Tests Knee Special Tests Varus- 25 Degrees Test Results Negative Valgus- 25 Degrees Test Results Negative Posterior Draw Test Results Negative Patellar Grind Test Test Results Negative Anterior Draw Test Results Negative PT-OP-M Strength Start: 03/29/24 10:21 Freq: Status: Active Protocol: Document 03/29/24 09:45 DCW (Rec: 03/29/24 12:00 DCW [id number]) Knee Strength Knee Manual Muscle Testing Right Flexion (S2) 5 Normal Extension (L3) 5 Normal Left Flexion (S2) 4 Good Extension (L3) 4 Good PT-OP-Q Treatments Start: 03/29/24 10:21 Freq: Status: Active Protocol: Document 05/03/24 08:10 AB (Rec: 05/03/24 10:40 AB [id number]) Therapeutic Exercises Sidelying Exercises abduction Sidelying Exercise Name HEP Side left Reps/Minutes X10 Comments Verbal cues SLR Sidelying Exercise Name SLR - adduction Side left Reps/Minutes X15 Comments VC to dec velocity Standing Exercises Squat Standing Exercise Name with and without UE use/ with and w/o mirror Side bilateral Equipment Used HEP Reps/Minutes X 13 Comments VC buttocks back and knee alignemnt glute med isometric Side bilateral Reps/Minutes 60 sec each LE X 1 Comments verbal and visual cues calf stretch Standing Exercise Name Gastroc Stretch and soleus Side bilateral Resistance HEP Equipment Used 1. EVAN 2. at wall 3. HEP on step Reps/Minutes 1. 60 sec shiv, 10 sec soleus 2.60 sec eac 3. 60 X2 shiv and soleues Comments Verbal cues Resistance Lunge Standing Exercise Name Lunge with medial T-band resistance Side bilateral Resistance Lv 3 Reps/Minutes X13 Comments verbal cues for hip hinge Therapeutic Activity Therapeutic Activity stair training Name 4 inch stairs with rail Comments Patient reports less pain, clicking persists L knee Manual Therapy Treatment Consent Patient gave verbal consent for manual Yes treatment Soft Tissue Mobilization L calf Mobilization Type Cross-Friction,Rolling Intensity/Depth Moderate Body Position Prone Joint Mobilizations Patella Joint Patella mobs Direction Inf/Sup, med, lat, CW, CCW Grade III Body Position Sitting TCLeft ankle Joint Mulligan with movement Direction AP Grade III Body Position Standing Reps/Duration X10 and X 5 Comments Limited by L knee pain Patient ed rationale of TC mob with use of skeleton model. PT-OP-T Assessment and Plan Start: 03/29/24 10:21 Freq: Status: Active Protocol: Document 05/03/24 08:10 AB (Rec: 05/03/24 10:40 AB [id number]) Physical Therapy Assessment Goals Two Impairment Pt unable to ascend stairs with a reciprocal gait pattern [place] Goal (LTG) Pt to demonstrate ability to ascend a flight of stairs with a [id number] gait pattern without increased pain in order to demonstrate improvement in patellar tracking LTG Duration 05/27/24 One Impairment Pt does not have an appropriate home exercise program Short Term Goal (STG) Pt to be independent and compliant with an appropriate HEP STG Duration 04/29/24 Assessment Summary Assessment Increased verbal cues and use of mirror for mini squat, also UE use > no UE use. Patient reports less pain, clicking persists L knee descending 4 inch stairs with rails using a reciprocal pattern. Physical Therapy Plan Frequency and Duration Frequency of Treatment 2x/Week Plan of Care Start Date 03/29/24 Plan of Care End Date 05/27/24 Next Visit Focus/Plan Next Note Type Treatment Note Next Visit Plan Quad/HS strengthening, knee extension mobility, gait training.
--- NOTE | 2024-05-10 11:28 | PT.OTN ---
Current Diagnoses Other instability, left knee (05/10/24) Pain in left knee (05/10/24) Stiffness of left knee, not elsewhere classified (05/10/24) Physical Therapy Treatment Note PT-OP-A Visit Information Start: 03/29/24 10:21 Freq: Status: Active Protocol: Document 05/10/24 10:40 DCW (Rec: 05/10/24 11:28 DCW [id number]) Out-Patient Physical Therapy Visit Information Visit Information Visit Type Treatment Note Visit Start Time 10:40 Visit Stop Time 11:25 Visit Number 6 Number of CORN CUTTER OPERATOR Visits 0 Evaluation Information Evaluation Date 03/29/24 PT-OP-B Current Condition Start: 03/29/24 10:21 Freq: Status: Active Protocol: Document 03/29/24 09:45 DCW (Rec: 03/29/24 10:34 DCW [id number]) Current Condition History of Current Condition Onset Date 2015 Current Complaints Left knee instability, patellar dislocations History of Current Condition Pt is a 28 year old female presenting with an eight year history of left knee instability. Began in 2015 with an unexpected twisting motion when slipping on mud, resulting in patellar dislocation. Since that time, pt has occasional times of her knee going out, describes that it feels like her knee cap pops out of place and then goes back in. 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 Even when she has not experienced recent knee instability, her knee always hurts. Note the back of her knee iss stiff, feels like it locks up. Did undergo an MRI last week, and had follow-up with surgeon. Therapist does not currently have access to MRI results, but pt reports she has torn her MPFL, and the ortho expects her to require surgery in the future, but would like her to work on leg strengthening first. Pt notes she avoids stairs as much as she can, and will typically ascend in a step-to manner, which has now resulted in worsening right knee pain from overuse. PT-OP-C Subjective Start: 03/29/24 10:21 Freq: Status: Active Protocol: Document 05/10/24 10:40 DCW (Rec: 05/10/24 11:28 DCW [id number]) OP-PT Subjective Patient Comments Patient Comments Pt notes she is feeling pretty good, well pretty okay. Was able to kneel on the floor and get up without any pain. Still has pain descending stairs, but other than that, it's been okay. PT-OP-F Manual Assessment Start: 03/29/24 10:21 Freq: Status: Active Protocol: Document 03/29/24 09:45 DCW (Rec: 03/29/24 12:00 DCW [id number]) Manual Assessments Soft Tissue Assessment Soft Tissue Mobility Assessment Moderate tone and tenderness to palpation 3/4: wincing and withdraw left proximal gastroc Joint Mobility Assessment Joint Mobility Assessment Wincing with left knee extension, soft end feel for bilateral knee flexion. Hypermobility of patellar lateral movement PT-OP-K Range of Motion Start: 03/29/24 10:21 Freq: Status: Active Protocol: Document 03/29/24 09:45 DCW (Rec: 03/29/24 12:00 DCW [id number]) Knee Goniometric Range of Motion Knee Right Patient Position Supine Flexion Active (degrees) 118 Extension Active (degrees) 0 Left Patient Position Supine Flexion Active (degrees) 112 Extension Active (degrees) 6 PT-OP-L Special Tests Start: 03/29/24 10:21 Freq: Status: Active Protocol: Document 03/29/24 09:45 DCW (Rec: 03/29/24 12:00 DCW [id number]) Special Tests Knee Special Tests Varus- 25 Degrees Test Results Negative Valgus- 25 Degrees Test Results Negative Posterior Draw Test Results Negative Patellar Grind Test Test Results Negative Anterior Draw Test Results Negative PT-OP-M Strength Start: 03/29/24 10:21 Freq: Status: Active Protocol: Document 03/29/24 09:45 DCW (Rec: 03/29/24 12:00 DCW [id number]) Knee Strength Knee Manual Muscle Testing Right Flexion (S2) 5 Normal Extension (L3) 5 Normal Left Flexion (S2) 4 Good Extension (L3) 4 Good PT-OP-Q Treatments Start: 03/29/24 10:21 Freq: Status: Active Protocol: Document 05/10/24 10:40 DCW (Rec: 05/10/24 11:28 DCW [id number]) Gym Equipment Shuttle Recovery Plyometric Details Plyometric hopping Resistance 25# Unilateral Squats Resistance 50# Shuttle Recovery Platform Stable Bilateral Squats Resistance 87# Shuttle Recovery Platform Stable Shuttle Balance Red Details WBOS, Staggered Therapeutic Exercises Standing Exercises Step-ups Standing Exercise Name Step-downs Side bilateral Equipment Used 4 step Other Exercises Resisted Ambulation Other Exercise Name Resisted Side-stepping Resistance [place] Manual Therapy Treatment Consent Patient gave verbal consent for manual Yes treatment Joint Mobilizations Patella Joint Patella mobs Direction Inf/Sup, Grade III Body Position Sitting Neuro Re-Education Treatment Balance Activities BOSU Lunge Details BOSU Lunge Surface Blue BOSU Equipment // bars PT-OP-T Assessment and Plan Start: 03/29/24 10:21 Freq: Status: Active Protocol: Document 05/10/24 10:40 DCW (Rec: 05/10/24 11:28 DCW [id number]) Physical Therapy Assessment Impairments Impairments Functional Activities, Functional Mobility,Gait,Pain, Strength Goals Two Impairment Pt unable to ascend stairs with a reciprocal gait pattern [employer] Goal (LTG) Pt to demonstrate ability to ascend a flight of stairs with a hiid-urwo-sdru gait pattern without increased pain in order to demonstrate improvement in patellar tracking LTG Duration 05/27/24 One Impairment Pt does not have an appropriate home exercise program Short Term Goal (STG) Pt to be independent and compliant with an appropriate HEP STG Duration 04/29/24 Assessment Summary Assessment Pt making some progress with stability of patella, improving strength in quad, however continues to demonstrate excessive mobility with lateral patella movement , as expected with torn MPFL. Pt has follow-up with ortho later this week, will decide on next steps. Pt is interested in continuing with PT, but is concerned about affording co-pay. Physical Therapy Plan Frequency and Duration Frequency of Treatment 2x/Week Plan of Care Start Date 03/29/24 Plan of Care End Date 05/27/24 Therapeutic Interventions Therapeutic Interventions Gait Training,Home Exercise Program,Joint Mobilizations, Manual Therapy,Neuromuscular Re-education,Patient/Caregiver Education,Self-Care/Home Management,Soft Tissue Mobilization,Therapeutic Activities,Therapeutic Exercises Next Visit Focus/Plan Next Note Type Treatment Note Next Visit Plan Quad/HS strengthening, knee extension mobility, gait training.
--- NOTE | 2024-12-27 12:33 | PT.OPDS ---
Current Diagnoses Other instability, left knee (05/10/24) Pain in left knee (05/10/24) Stiffness of left knee, not elsewhere classified (05/10/24) Visit Care Team Role Provider Type Mohan Fajardo MD Family Provider Physician Primary Care Provider Specialty: Family Practice Address: [address] [place] [address], [place], [place], [address] Email: [email or web address] Panchito Clark MD Attending Provider Non-Staff Referring Provider Specialty: Sports Medicine Address: [address] [place] [address], [id number] Email: Visit Number Visit Number 6 Discharge Summary PT-OP-A Visit Information Start: 03/29/24 10:21 Freq: Status: Active Protocol: Document 05/10/24 10:40 DCW (Rec: 05/10/24 11:28 DCW [id number]) Out-Patient Physical Therapy Visit Information Visit Information Visit Type Treatment Note Visit Start Time 10:40 Visit Stop Time 11:25 Visit Number 6 Number of FLYING TEACHER Visits 0 Evaluation Information Evaluation Date 03/29/24 PT-OP-B Current Condition Start: 03/29/24 10:21 Freq: Status: Active Protocol: Document 03/29/24 09:45 DCW (Rec: 03/29/24 10:34 DCW [id number]) Current Condition History of Current Condition Onset Date 2016 Current Complaints Left knee instability, patellar dislocations History of Current Pt is a 28 year old female presenting with an eight Condition year history of left knee instability. Began in 2015 with an unexpected twisting motion when slipping on mud , resulting in patellar dislocation. Since that time, pt has occasional times of her knee going out, describes that it feels like her knee cap pops out of place and then goes back in. 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 Even when she has not experienced recent knee instability, her knee always hurts. Note the back of her knee iss stiff, feels like it locks up. Did undergo an MRI last week, and had follow-up with surgeon. Therapist does not currently have access to MRI results, but pt reports she has torn her MPFL, and the ortho expects her to require surgery in the future, but would like her to work on leg strengthening first. Pt notes she avoids stairs as much as she can, and will typically ascend in a step-to manner, which has now resulted in worsening right knee pain from overuse. PT-OP-C Subjective Start: 03/29/24 10:21 Freq: Status: Active Protocol: Document 05/10/24 10:40 DCW (Rec: 05/10/24 11:28 DCW [id number]) OP-PT Subjective Patient Comments Patient Comments Pt notes she is feeling pretty good, well pretty okay. Was able to kneel on the floor and get up without any pain. Still has pain descending stairs, but other than that, it's been okay. PT-OP-F Manual Assessment Start: 03/29/24 10:21 Freq: Status: Active Protocol: Document 03/29/24 09:45 DCW (Rec: 03/29/24 12:00 DCW [id number]) Manual Assessments Soft Tissue Assessment Soft Tissue Mobility Moderate tone and tenderness to palpation 3/4: wincing Assessment and withdraw left proximal gastroc Joint Mobility Assessment Joint Mobility Wincing with left knee extension, soft end feel for Assessment bilateral knee flexion. Hypermobility of patellar lateral movement PT-OP-K Range of Motion Start: 03/29/24 10:21 Freq: Status: Active Protocol: Document 03/29/24 09:45 DCW (Rec: 03/29/24 12:00 DCW [id number]) Knee Goniometric Range of Motion Knee Right Patient Position Supine Flexion Active ( 118 degrees) Extension Active ( 0 degrees) Left Patient Position Supine Flexion Active ( 112 degrees) Extension Active ( 6 degrees) PT-OP-L Special Tests Start: 03/29/24 10:21 Freq: Status: Active Protocol: Document 03/29/24 09:45 DCW (Rec: 03/29/24 12:00 DCW [id number]) Special Tests Knee Special Tests Varus- 25 Degrees Test Results Negative Valgus- 25 Degrees Test Results Negative Posterior Draw Test Results Negative Patellar Grind Test Test Results Negative Anterior Draw Test Results Negative PT-OP-M Strength Start: 03/29/24 10:21 Freq: Status: Active Protocol: Document 03/29/24 09:45 DCW (Rec: 03/29/24 12:00 DCW [id number]) Knee Strength Knee Manual Muscle Testing Right Flexion (S2) 5 Normal Extension (L3) 5 Normal Left Flexion (S2) 4 Good Extension (L3) 4 Good PT-OP-T Assessment and Plan Start: 03/29/24 10:21 Freq: Status: Active Protocol: Document 12/27/24 12:32 DCW (Rec: 12/27/24 12:33 DCW [id number]) Physical Therapy Assessment Assessment Summary Assessment Pt has not been seen in more than seven months. POC has . Pt will require a new referral in order to return in the future. Pt will be discharged from skilled PT at this time. Physical Therapy Plan Discharge Physical Therapy Discharge Reasons No Longer Attending PT
== END 2024-12-28 10:19 | disposition home or self-care (01) ==
LOC: PHYS 10:45
PROVIDERS: Family Provider Family Medicine; PCP Family Medicine; Referring Provider Orthopaedic Surgery Sports Medicine; Visit Provider Orthopaedic Surgery Sports Medicine
DX: M25.362 Other instability, left knee (principal); M25.562 Pain in left knee; M25.662 Stiffness of left knee, not elsewhere classified
CPT/HCPCS: 97110; 97112; 97140; 97163; 97530